=== PATIENT | female | born 1965 | race Caucasian/White ===

== ENCOUNTER 2018-02-26 18:10 | Emergency (ER) | payer OTHER ==
[2018-02-26 18:45] VITALS: BP 132/62
--- NOTE | 2018-02-26 18:57 | ER Document Report ---
HPI - HPI Pain Level: Denies Notes: Patient is a 53-year-old female no significant past medical history who presents to the ED complaining of working in a house that was built in the [place]s for [employer] with the possibility of exposure to either blown an insulation versus asbestos. Patient did collect a sample and is going to contact her employer for inspection of that area. Patient states that she does not believe it is as best as based on images at this time, but wanted to come in to discuss her options. Patient states that she is otherwise feeling well and has not had any recent illness. She does not smoke or do any drugs. Denies any drug allergies. Patient is able to ambulate without any dyspnea on exertion. Denies any headache, fever, URI, sore throat, chest pain, palpitations, syncope , cough, shortness of breath, wheeze, dyspnea, abdominal pain, nausea/vomiting/ diarrhea, urinary retention, dysuria, hematuria, or rash. - ROS Systems Reviewed and Negative: Yes All other systems reviewed and negative Past Medical History - Social History Smoking Status: Never Smoker Family History: Reviewed & Not Pertinent Vertical Provider Document - CONSTITUTIONAL Agree With Documented VS: Yes Notes: PHYSICAL EXAMINATION: GENERAL: Well-appearing, well-nourished and in no acute distress. LUNGS: Breath sounds clear to auscultation bilaterally and equal. No wheezes rales or rhonchi. HEART: Regular rate and rhythm without murmurs, rubs, gallops. ABDOMEN: Soft, nontender, nondistended abdomen. No guarding, no rebound. No masses appreciated. Normal bowel sounds present. No CVA tenderness bilaterally. Musculoskeletal: FROM to passive/active. Strength 5+/5. Extremities: No cyanosis, clubbing, or edema b/l. Peripheral pulses 2+. Capillary refill less than 3 seconds. NEUROLOGICAL: Normal speech, normal gait. PSYCH: Normal mood, normal affect. SKIN: Warm, Dry, normal turgor, no rashes or lesions noted. - INFECTION CONTROL TRAVEL OUTSIDE OF THE [place] IN LAST 30 DAYS: No Course - Re-evaluation Re-evalutation: 02/26/18 18:53 Patient is an afebrile, well-hydrated, 53-year-old female who presents to the ED with exposure to insulation versus asbestos, but most likely just blown insulation. Vitals are acceptable without significant tachycardia, tachypnea, or hypoxia. PE is otherwise unremarkable. Patient declined any chest x-ray at this time. Patient is currently asymptomatic. She is nontoxic-appearing and is tolerating p.o. without difficulties. Patient is going to be contacting her employer for inspection of that feeling that she was in and see if she can have her sample tested. No further labs or imaging warranted at this time based on H &P. Low suspicion for any sepsis, meningitis, severe dehydration, respiratory compromise, or other systemic emergent condition at this time. Patient is aware that condition can change from initial presentation and she needs to monitor symptoms closely and seek medical attention with any acute changes. Recheck with your PCM in 1 week. Consider consult with a focused factory manager for PFT. Return to the ED with any worsening/concerning symptoms otherwise as reviewed in discharge. Patient is in agreement. - Vital Signs Vital signs: Temp Pulse Resp BP Pulse Ox 98.2 F 58 L 132/62 H 96 02/26/18 18:42 02/26/18 18:42 02/26/18 18:42 02/26/18 18:42 Discharge - Discharge Clinical Impression: Exposure to respiratory irritant Qualifiers: Encounter type: initial encounter Qualified Code(s): T75.89XA - Other specified effects of external causes, initial encounter Condition: Stable Disposition: HOME, SELF-CARE Additional Instructions: Maintain adequate fluid intake Take meds as directed tylenol/ibuprofen as needed over the counter cold medication as needed for symptoms Humidified air may help Wash your hands regularly Wear a mask when in homes F/u: with your PCM in 1 week for a recheck Consider consult with pulmonology. Return to the ED with any fever, worsening pain, chest pain, palpitations, syncope, worsening MARKS, neck pain/stiffness, shortness of breath, wheezing, drooling, trouble swallowing/breathing, abdominal pain, n/v/d, rash, or worsening/concerning symptoms otherwise. Forms: Elevated Blood Pressure Referrals: ROSETTA ROSALES MD [ACTIVE STAFF] - Follow up as needed
== END 2018-02-26 19:12 | disposition home or self-care (01) ==
LOC: ER 18:10
DX: Z57.5 Occupational exposure to toxic agents in other industries (principal)
CPT/HCPCS: 99283